=== PATIENT | male | born 1955 | race Caucasian/White ===

== ENCOUNTER 2021-06-01 15:31 | Observation (INO) | payer SELFPAY ==
--- NOTE | 2021-05-31 12:35 | EKG12_ITS ---
Test Reason : PREOP Blood Pressure : / mmHG Vent. Rate : 073 BPM Atrial Rate : 073 BPM P-R Int : 186 ms QRS Dur : 110 ms QT Int : 368 ms P-R-T Axes : 036 014 019 degrees QTc Int : 405 ms Normal sinus rhythm Normal ECG Confirmed by AGUS COUCH, TEQUILA ([id number]), food editor RENITA DIAZ ([id number]) on 06/01/2021 9:55:03 AM Referred By: Bakari Hall Confirmed By:TEQUILA GOLDSMITH MD
[2021-05-31 14:31] LABS: Anion Gap 3 (5-15); BUN 16 mg/dL (7-18); BUN/Creat Ratio 17.6 RATIO (10-20); Calcium,Total 9.6 mg/dL (8.5-10.1); Chloride 105 mmol/L (98-107); Creatinine, Serum 0.91 mg/dL (0.70-1.30); EST Glomerular Filtration Rate 89 mL/min (>60); Est Glom Filt Rate - Afr Amer 108 mL/min (>60); Glucose 87 mg/dL (74-106); Potassium 3.7 mmol/L (3.5-5.1); Sodium Level 139 mmol/L (136-145)
[2021-06-01] VITALS (8 sets, daily range): BP systolic 129–143; BP diastolic 82–91; PULSE 71–83; RESP 16–18; TEMP 36.3–36.9; O2SAT 91–100; BMI 32.4
[2021-06-01] MEDS: Lactated Ringers 1,000 ML 15 ML IV ×3 (11:54→19:53)
--- NOTE | 2021-06-01 13:25 | PROS_PTH ---
PATIENT: BEE HOLBROOK LOC: MS3 U#:[id number] AGE/SX: 65/M ROOM: [facility] [place] RE06/01/[address]: Dr. Bakari Hall MD : 1955 BED: 1 DIS: 06/03/2021 SPEC #: [id number] RECD: 06/03/21 13:33 STATUS: OSIEL FLORES #: [id number] AGAPITO: 06/01/21 13:[address]: Bakari Hall DEPT: SURGICAL PATHOLOGY RECD BY: Hermelinda Hartman ENTERED: 06/06/21 08:38 SP TYPE: TURP OTHR DR: Dr. Jovi Chamberlain, DO Tissues: Prostate, NOS Procedures: Surgery Specimen Level IV HEADER OPERATION: Transurethral resection prostate with Olympus PRE-OP DIAGNOSIS: BPH with urinary tract symptoms TISSUE SUBMITTED: Prostate tissue MICROSCOPIC DIAGNOSIS Prostate, transurethral resection: Benign nodular hyperplasia, primarily stromal type. Chronic inflammation. AM:kelli 06/07/2021 MICROSCOPIC DESCRIPTION Slides are reviewed. GROSS DESCRIPTION Received is one container labeled with the patient's name and designated prostate tissue. The specimen consists of multiple irregular fragments of pink-guevara, rubbery, soft tissue that in aggregate weigh 25.6 gm and measure in aggregate 6 x 6 x 2.5 cm. Staff Trainer portions are submitted in ten cassettes. / AM:kelli 06/06/2021 TC:3 CPT: 67939
[2021-06-01] MEDS: Cefazolin 2 GM in 0.9% Normal Saline 100 ML IV (13:37)
--- NOTE | 2021-06-01 15:33 | HP.PCM_ITS ---
HPI - General HPI Narrative BEE HOLBROOK, is a 65 M who presents with urinary retention plan to proceed with a TURP [facility] Medical History (Updated 05/25/21 @ 13:50 by Coretta Oakley) Anxiety History of hiatal hernia Hx of fracture of wrist Hypertension Indwelling urethral catheter present Non-smoker Prostate disease Wears glasses Home Medications ascorbic acid (vitamin C) [Vitamin C] 500 mg PO DAILY 05/25/21 [History Last Taken Unknown] aspirin 81 mg PO DAILY 05/25/21 [History Last Taken 05/24/21] cholecalciferol (vitamin D3) [Vitamin D3] 25 mcg PO DAILY 05/25/21 [History Last Taken Unknown] garlic 500 mg PO DAILY 05/25/21 [History Last Taken Unknown] hydrochlorothiazide 25 mg PO DAILY 05/25/21 [History Last Taken Unknown] lisinopril 10 mg PO DAILY 05/25/21 [History Last Taken 06/01/21 07:30] tamsulosin [Flomax] 0.4 mg PO QHS 05/25/21 [History Last Taken Unknown] ciprofloxacin HCl [Cipro] 500 mg PO BID #10 tab 06/01/21 [Rx Last Taken Unknown] Allergy/AdvReac Type Severity Reaction Status Date / Time No Known Allergies Allergy Verified 06/01/21 11:46 Surgical History (Updated 05/25/21 @ 13:50 by Coretta Oakley) Hx of right cataract extraction Social History Smoking Status: Never smoker Vital Signs Vital Signs Vital Signs: 06/01/21 11:48 Temperature 98.3 F Temperature Source Temporal Pulse Rate 71 Respiratory Rate 18 Respiratory Pattern Normal Blood Pressure 143/91 H Blood Pressure Mean 108 Blood Pressure Source Monitor Blood Pressure Position Semi-Fowlers Blood Pressure Location Right Arm Pulse Ox 100 Oxygen Delivery Method Room Air Weight Weight: 94 kg Body Mass Index (BMI) 32.4 Results Lab / Micro Data Result Diagrams: 05/31/21 12:49 05/31/21 12:49
--- NOTE | 2021-06-01 15:33 | PCM.DC ---
Discharge Instructions Diet Discharge Diet: No restrictions Activity Discharge Activity: Return to Normal Activity and May Not Drive (while taking narcotic pain medications.) Dressing / Incision Call your doctor if you observe: Fever of 101 or Higher Follow Up Care Please Follow Up With: Bakari Hall MD When: Call [phone] for an appointment Test Results: Test results from this visit will be discussed in further detail at your follow-up appointment, if applicable. Discharge Plan Admission Primary Reason for Your Visit: turp Attending Provider: Bakari Hall Primary Care Provider: Jovi Chamberlain Discharge Orders/Prescriptions Prescriptions: New ciprofloxacin HCl [Cipro] 500 mg tablet 500 mg PO BID Qty: 10 RF: 0 Continued hydrochlorothiazide 50 mg Tablet 25 mg PO DAILY RF: 0 tamsulosin [Flomax] 0.4 mg Capsule 0.4 mg PO QHS RF: 0 lisinopril 10 mg Tablet 10 mg PO DAILY RF: 0 ascorbic acid (vitamin C) [Vitamin C] 500 mg Tablet Extended Release 500 mg PO DAILY RF: 0 garlic Tablet 500 mg PO DAILY RF: 0 cholecalciferol (vitamin D3) [Vitamin D3] 25 mcg (1,000 unit) Capsule 25 mcg PO DAILY RF: 0 Held aspirin 81 mg Tablet,Delayed Release (Dr/Ec) 81 mg PO DAILY RF: 0 Hold Instructions: Resume on 06/15/21. Referrals / Follow Up: Jovi Chamberlain DO [Primary Care Provider] - Bakari Hall MD [STAFF PHYSICIAN] - Disposition Disposition (needs filled in before D/C Order can be placed): Home, Self Care
--- NOTE | 2021-06-01 15:34 | OP.PCM_ITS ---
Report of Operation Date of Procedure: 06/01/21 Pre-Operative Diagnosis: BPH and retention of urine Post-Operative Diagnosis: same Surgery/Procedure Performed:: TURP Description of Surgical Findings:: In the preoperative setting I discussed with the patient how the surgery would be done with expect afterwards. We discussed how a prostate resection is done and we discussed the risk of the surgery including, bleeding, infection, retrograde ejaculation, changes with ejaculation or intercourse,. We discussed the possibility that the resection of the prostate may not alleviate his urinary symptoms. We discussed the small risk of developing scar tissue along the urethral channel and strictures. We also discussed the chance of the prostate could grow back and he may need further surgery or treatment in the future for prostate problems. Patient was taken back to the operating room, timeout procedure was performed, he was identified and marked and placed on the operating room table. He underwent general anesthesia. He was placed in dorsolithotomy position. Penis and testicles were prepped and draped in usual sterile fashion. Went into the bladder using the visual obturator with a resectoscope. Once inside the bladder identified the right and left ureteral orifice. I then identified the prostate and the anatomy of the prostate. I marked out the area of the sphincter and the verumontanum was identified. I then proceeded with the prostate resection first resected the median lobe. And then resected the right lobe of the prostate. Then to resect the left lobe of the prostate. I then resected the apical tissue of the prostate. This was a complete resection of all obstructive tissue to improve voiding and relieve obstruction. I then made sure that there was no injury to the sphincter or the verumontanum was still intact. At the end of the resection all the chips were Ellik out of the bladder. I then identified the left and right ureteral orifice and these were confirmed to be in good position and effluxing and not injured. The resectoscope was removed, a 22 Hungarian catheter was placed into the bladder on continuous irrigation. And the urine was fairly light pink color and draining normally. He was taken back to the PACU in good condition. CPT 99818 Surgeon: evan Type of Anesthesia: General Drains: [address] Ad[address] VTE Documentation VTE Present on Admission: No VTE Mechan Device Prophylaxis: SCD's VTE Pharm Prophylaxis ordered?: No
[2021-06-01] MEDS: Lactated Ringers 1,000 ML 150 ML IV (17:20)
[2021-06-01] MEDS: Ciprofloxacin 500 MG Tablet PO (21:54)
[2021-06-01] MEDS: Tamsulosin HCl 0.4 MG Capsule PO (21:54)
[2021-06-02] VITALS (7 sets, daily range): BP systolic 116–137; BP diastolic 72–83; PULSE 77–95; RESP 16–18; TEMP 36.6–36.9; O2SAT 94–97
[2021-06-02] MEDS: Lactated Ringers 1,000 ML 150 ML IV ×2 (02:25→11:38)
--- NOTE | 2021-06-02 07:33 | PCM.PN.GU ---
Subjective Subjective urine too bloody continue with irrigation, CBI Objective Data Objective Data Vital Signs: Vital Signs Temp Pulse Resp BP Pulse Ox 98.0 F 95 16 137/83 H 95 06/02/21 05:15 06/02/21 05:15 06/02/21 05:15 06/02/21 05:15 06/02/21 05:15 Oxygen Delivery Method Room Air Weight: 94 kg Body Mass Index (BMI) 32.4 Intake & Output: Intake and Output for Last 24 Hours 05/31/21 06/01/21 06/02/21 23:59 23:59 23:59 Intake Total 228.5 / 228.5 972.5 / 972.5 Output Total 1950 / 1950 750 / 750 Balance -1721.5 / -1721.5 222.5 / 222.5 Lab / Micro Data Result Diagrams: 05/31/21 12:49 05/31/21 12:49
[2021-06-02] MEDS: Ciprofloxacin 500 MG Tablet PO ×2 (10:22→22:19)
[2021-06-02] MEDS: Ascorbic Acid 500 MG Tablet PO (10:22)
[2021-06-02] MEDS: hydroCHLOROthiazide 25 MG Tablet PO (10:22)
[2021-06-02] MEDS: Lisinopril 10 MG Tablet PO (10:22)
[2021-06-02] MEDS: Cholecalciferol (VIT D3) 25 MCG TABLET (1,000 UNITS) PO (10:22)
[2021-06-02] MEDS: Tamsulosin HCl 0.4 MG Capsule PO (22:19)
[2021-06-03 03:15] VITALS: BP 125/80; PULSE 74; RESP 16; TEMP 36.9; O2SAT 96
--- NOTE | 2021-06-03 07:28 | PCM.PN.GU ---
Subjective Subjective Urine is now clear d/c 3 way [facility] home today after voids Objective Data Objective Data Vital Signs: Vital Signs Temp Pulse Resp BP Pulse Ox 98.4 F 74 16 125/80 H 96 06/03/21 03:15 06/03/21 03:15 06/03/21 03:15 06/03/21 03:15 06/03/21 03:15 Oxygen Delivery Method Room Air Weight: 94 kg Body Mass Index (BMI) 32.4 Intake & Output: Intake and Output for Last 24 Hours 06/01/21 06/02/21 06/03/21 23:59 23:59 23:59 Intake Total 228.5 / 228.5 5372.5 / 5372.5 Output Total 1950 / 1950 3050 / 3050 2250 / 2250 Balance -1721.5 / -1721.5 2322.5 / 2322.5 -2250 / -2250 Lab / Micro Data Result Diagrams: 05/31/21 12:49 05/31/21 12:49
[2021-06-03 08:03] VITALS: BP 127/72; PULSE 80; RESP 16; TEMP 37.1; O2SAT 98
[2021-06-03] MEDS: Ciprofloxacin 500 MG Tablet PO (09:58)
[2021-06-03] MEDS: Lisinopril 10 MG Tablet PO (09:58)
[2021-06-03] MEDS: Ascorbic Acid 500 MG Tablet PO (09:58)
[2021-06-03] MEDS: hydroCHLOROthiazide 25 MG Tablet PO (09:59)
[2021-06-03] MEDS: Cholecalciferol (VIT D3) 25 MCG TABLET (1,000 UNITS) PO (09:59)
[2021-06-03 12:03] VITALS: BP 151/74; PULSE 78; RESP 16; TEMP 36.7; O2SAT 99
== END 2021-06-03 12:30 | disposition home or self-care (01) ==
LOC: SDC 16:27 → MS3 16:27
PROVIDERS: Anesthesiology; Admitting Provider Urology; PCP Family Medicine; Referring Provider Urology; Visit Provider Urology
PROC: (CPT 52601; principal; 2021-06-01 13:15)
DX: N40.1 Benign prostatic hyperplasia with lower urinary tract symptoms (principal); R33.9 Retention of urine, unspecified; I10 Essential (primary) hypertension; R31.9 Hematuria, unspecified; Z79.899 Other long term (current) drug therapy; Z79.82 Long term (current) use of aspirin
CPT/HCPCS: 52601; 00914; 36415; 80048; 88305; 93005; 96360; 96361; 99218; J7120; G0378; J2405

== ENCOUNTER → 2022-10-31 | Outpatient (CLI) | payer OTHER, SELFPAY ==
[2022-10-31 15:11] LABS: PSA,Total - Annual Screen 2.52 ng/mL (0.00-4.00)
== END | disposition home or self-care (01) ==
PROVIDERS: PCP Family Medicine; Referring Provider Urology; Visit Provider Urology
DX: Z12.5 Encounter for screening for malignant neoplasm of prostate (principal)
CPT/HCPCS: 36415; 84153; G0103

== ENCOUNTER → 2023-11-05 | Outpatient (CLI) | payer MEDICARE, SELFPAY ==
[2023-11-05 16:20] LABS: PSA,Total - Annual Screen 2.14 ng/mL (0.00-4.00)
== END | disposition home or self-care (01) ==
PROVIDERS: PCP Family Medicine; Referring Provider Nurse Practitioner; Visit Provider Nurse Practitioner
DX: Z12.5 Encounter for screening for malignant neoplasm of prostate (principal)
CPT/HCPCS: 36415; 84153; G0103

== ENCOUNTER → 2024-11-25 | Outpatient (CLI) | payer MEDICARE, SELFPAY ==
[2024-11-25 11:45] LABS: PSA,Total - Annual Screen 3.39 ng/mL (0.02-4.00)
== END | disposition home or self-care (01) ==
LOC: LAB 09:44
PROVIDERS: PCP Family Medicine; Referring Provider Urology; Visit Provider Urology
DX: Z12.5 Encounter for screening for malignant neoplasm of prostate (principal)
CPT/HCPCS: 36415; 84153; G0103